=== PATIENT | male | born 1985 | race Caucasian/White ===

== ENCOUNTER → 2023-08-18 | Outpatient (CLI) | payer OTHER ==
[~2023-08-18] MED LIST: LORTAB 5/500 501 TAB PO; NO HOME MEDICATIONS; NORCO 325 MG-51 TAB PO; PEN-VEE K500 MG PO; PROTONIX 40MG T40 MG PO; ZOFRAN ODT4 MG PO
== END ==
LOC: COL.RAD 15:11
DX: K80.20 Calculus of gallbladder without cholecystitis without obstruction (principal)

== ENCOUNTER 2023-09-17 11:43 | Day surgery (SDC) | payer OTHER ==
[~2023-09-17] VITALS: Ht 182.9 cm; Wt 73.4 kg
[~2023-09-17 11:43] MED LIST changes: +LR 1,000 ML IV SCH
[2023-09-17] MEDS ORDERED: Indocyanine Green 12.5 MG in Water For Injection,Sterile 2.5 ML IV SCH (12:00)
[2023-09-17 12:20] LABS: BASO # 0.1 K/mm3 (0.0-0.2); BASO % 1.5 % (0.0-2.0); EOS # 0.1 K/mm3 (0.0-0.7); EOS % 2.6 % (0.0-4.0); GRAN # 2.8 K/mm3 (1.4-6.5); GRAN % 60.3 % (42.2-75.2); HEMATOCRIT 42.2 % (42.0-52.0); HEMOGLOBIN 14.6 g/dl (13.5-18.0); LYMPH # 1.3 K/mm3 (1.2-3.4); LYMPH % 27.6 % (20.0-51.0); MEAN CELL VOLUME 86 fl (80.0-100.0); MEAN CORPUSCULAR HEMOGLOBIN 30 pg (27-31); MEAN CORPUSCULAR HGB CONC 35 g/dl (33.0-37.0); MEAN PLATELET VOLUME 9.9 fl (7.4-10.4); MONO # 0.4 K/mm3 (0.1-0.6); MONO % 7.8 % (1.7-9.3); PLATELET COUNT 219 K/mm3 (130-400); RED BLOOD COUNT 4.92 M/mm3 (4.20-5.60); REDCELL DISTRIBUTION WIDTH-CV 12.6 % (11.5-14.5)
[2023-09-17 12:29] VITALS: BP 120/65; PULSE 67; TEMP 97.5
--- NOTE | 2023-09-17 12:33 | NUR ---
The patient ambulated back to [place] [facility] independently using a steady gait and appeared to tolerate the activity well. Vital signs obtained. Consent signed. 18G IV started in left hand with one stick, LR infusing without difficulty. Blood obtained from IV start for labs as ordered. Call light is within reach. Assessment comleted. Home medications reconcilled. Aunt brought back to be at his bedside. Warm blanket provided. Denies any further needs.
[2023-09-17 12:57] LABS: CALCIUM 9.3 mg/dL (8.4-10.2)
[2023-09-17 12:59] LABS: ALBUMIN 4.1 g/dL (3.5-5.0); BILIRUBIN,TOTAL 0.7 mg/dL (0.2-1.2); CREATININE, serum 0.74 mg/dL (0.72-1.25); POTASSIUM 3.1 mEq/L (3.5-4.5); TOTAL PROTEIN 7.2 g/dl (6.2-8.1)
[2023-09-17] MEDS ORDERED: Vecuronium 10 MG VIAL IV ONE (13:19)
[2023-09-17] MEDS ORDERED: Lidocaine PF 2% (20 MG/ML) 5 ML VIAL ONE (13:23)
[2023-09-17] MEDS ORDERED: fentaNYL 50 MCG/ML 5 ML VIAL ONE (13:24)
[2023-09-17] MEDS ORDERED: Meperidine 50 MG/ML 1 ML VIAL IV PRN (13:30)
[2023-09-17] MEDS ORDERED: fentaNYL 50 MCG/ML 2 ML VIAL IV PRN (13:30)
[2023-09-17] MEDS ORDERED: Ondansetron 4 MG/2 ML VIAL IV PRN ×2 (13:30→15:30)
[2023-09-17] MEDS ORDERED: droPERidol 2.5 MG/ML 2 ML VIAL IV PRN (13:30)
[2023-09-17] MEDS ORDERED: HYDROmorphone 2 MG/1 ML VIAL IV PRN (13:30)
[2023-09-17] MEDS ORDERED: NORCO 325 MG-51 TAB PO (14:03)
[2023-09-17] MEDS ORDERED: MOTRIN 600600 MG/TAB PO (14:03)
[2023-09-17] MEDS ORDERED: dexAMETHasone 10 MG/ML VIAL ONE (14:16)
[2023-09-17] MEDS ORDERED: Ondansetron 4 MG/2 ML VIAL ONE (14:16)
[2023-09-17] MEDS ORDERED: Ketorolac 30 MG/ML VIAL ONE (14:25)
[2023-09-17] MEDS ORDERED: Glycopyrrolate 0.2 MG/ML 1 ML VIAL ONE (14:43)
[2023-09-17] MEDS ORDERED: Topical Skin Adhesive 1 EACH (1 ML) TOP ONE (14:56)
[2023-09-17] MEDS ORDERED: NS 1,000 ML IV ONE (15:14)
[2023-09-17] MEDS ORDERED: Morphine 4 MG/ML VIAL IV PRN (15:30)
[2023-09-17] MEDS ORDERED: Ibuprofen 600 MG TAB PO PRN (15:30)
[2023-09-17] MEDS ORDERED: Acetaminophen 325 MG TAB PO PRN (15:30)
[2023-09-17 16:05] VITALS: BP 119/78; PULSE 70; TEMP 97.2
--- NOTE | 2023-09-17 16:05 | NUR ---
PATIENT RETURNED TO ROOM 4 VIA CART, ALERT AND ORIENTED X3. STATES PAIN IS MILD AND TOLERABLE TO ABDOMEN. DENIES NAUSEA AND SHORTNESS OF BREATH. BREATHING REGULAR AND UNLABORED ON ROOM AIR. SKIN WARM AND DRY. NURSE HANDOFF COMPLETED IN ROOM WITH INSPECTION OF SURGICAL SITES. 4 ABDOMINAL SURGICAL SITES WITH SKIN GLUE INTACT. ALL SURGICAL SITES DRY AND INTACT. ABDOMEN SOFT AND NONTENDER. PATIENT HAD WATER, APPLESAUCE AND APPLE JUICE. CALL LIGHT IN REACH. AUNT, [facility], PRESENT IN ROOM.
[2023-09-17 16:15] VITALS: BP 122/73; PULSE 63
[2023-09-17 16:30] VITALS: BP 117/74; PULSE 57
--- NOTE | 2023-09-17 16:34 | NUR ---
PATIENT REPORTED PAIN INCREASING TO ABDOMEN, RATING 5/10. DISCUSSED PAIN MANAGEMENT OPTIONS WITH PATIENT. PATIENT REQUESTED ORAL PAIN MEDICATION. SEE EMAR FOR MEDICATION GIVEN.
[2023-09-17 16:45] VITALS: BP 119/74; PULSE 55
[2023-09-17 17:00] VITALS: BP 118/72; PULSE 57
--- NOTE | 2023-09-17 17:28 | NUR ---
1710: PATIENT AMBULATED TO RESTROOM WITH STEADY GAIT AND VOIDED WITHOUT DIFFICULTY. 1722: DISCHARGE TEACHING COMPLETED WITH PRINTED EDUCATION AND INSTRUCTIONS SENT HOME WITH PATIENT. FOLLOW UP APPOINTMENT DATE, TIME AND LOCATION COMMUNICATED TO PATIENT. PATIENT VERBALIZED UNDERSTANDING. 1725: PATIENT RATES PAIN TOLERABLE 1/10 TO ABDOMEN. TOLERATING FOOD AND DRINK. IV REMOVED. GAUZE AND COBAN PLACED OVER SITE. 1728: PATIENT CHANGED INTO PERSONAL CLOTHING AND DISCHARGED HOME WITH [facility].
== END 2023-09-17 17:28 | disposition home or self-care (01) ==
LOC: SDCO 11:43
PROVIDERS: Surgery
DX: K80.10 Calculus of gallbladder with chronic cholecystitis without obstruction (principal)
CPT/HCPCS: J0690; J1100; J1170; J1885; J2405; J2704; J3010; J7030; J7120